=== PATIENT | male | born 1970 | race Caucasian/White ===

== ENCOUNTER 2019-11-24 17:32 | Emergency (ER) | payer MEDICAID ==
[~2019-11-24] VITALS: Ht 172.7 cm; Wt 83.9 kg
[2019-11-24 17:36] VITALS: Ht 172.7 cm; Wt 83.9 kg
[2019-11-24 20:38] VITALS: BP 115/70
== END 2019-11-24 21:09 | disposition home or self-care (01) ==
LOC: ED 17:32
DX: J32.9 Chronic sinusitis, unspecified (principal)
CPT/HCPCS: J1885; J2765; J7030